=== PATIENT | female | born 1990 | race Caucasian/White ===

== ENCOUNTER 2022-06-22 18:45 | Emergency (ER) | payer MEDICAID ==
[2022-06-22 19:22] VITALS: O2SAT 98
[2022-06-22] MEDS ORDERED: TORAdol 30 mg Injection IM ONE (19:39)
[2022-06-22] MEDS ORDERED: Augmentin 875-125 Tablet PO ONE (19:39)
[2022-06-22] MEDS ORDERED: Augmentin 875-125 Tablet ONE (19:46)
[2022-06-22] MEDS ORDERED: TORAdol 30 mg Injection ONE (19:46)
--- NOTE | 2022-06-22 19:49 | ERPHSYRPT ---
- History of Present Illness Time Seen by Provider: 06/22/22 18:49 Source: patient Exam Limitations: no limitations Patient Subjective Stated Complaint: pt states "I began to have this swelling start in my mouth last night. I called the dentist and wasn't able to get in ti ll the ." Triage Nursing Assessment: pt ambulated into the er; pt is axo x4; c/o toothache; pt states 6/10 pain to left side face; pt has multipe broken and missing teeth; multiple caries present; swelling present to left upper gum; pt denies fever; vitals wnl; skin PDW Physician History: 31 years old female with multiple bad dentition, varied dental disease presented in the ER with chief complaint of left upper jaw pain and swelling gradually worsening since yesterday, moderate intensity sharp pain, more with palpation, movements of jaw and no significant relieving factors. No fever or chills reported. Timing/Duration: gradual onset, yesterday Severity: moderate ENT Location: facial, dental Prearrival Treatment: over the counter meds Associated Symptoms: jaw pain, No fever Allergies/Adverse Reactions: No Known Drug Allergies Allergy (Verified 06/22/22 19:09) Home Medications: Buprenorphine HCl/Naloxone HCl [Buprenorphine-Nalox 8-2 mg Tab] 1.75 tab SL DAILY 06/22/22 [History] Hx Tetanus, Diphtheria Vaccination/Date Given: Yes Hx Influenza Vaccination/Date Given: No Hx Pneumococcal Vaccination/Date Given: No Immunizations Up to Date: Yes Travel Risk - International Travel Have you traveled outside of the country in past 3 weeks: No - Coronavirus Screening Are you exhibiting any of the following symptoms?: No Close contact with a COVID-19 positive Pt in past 14-21 Days: No - Vaccine Status Have you recieved a Covid-19 vaccination: No - Review of Systems Constitutional: No Symptoms Eyes: No Symptoms Ears, Nose, & Throat: Mouth Pain, Mouth Swelling Respiratory: No Symptoms Cardiac: No Symptoms Abdominal/Gastrointestinal: No Symptoms Musculoskeletal: No Symptoms Skin: No Symptoms Neurological: No Symptoms Endocrine: No Symptoms Hematologic/Lymphatic: No Symptoms Immunological/Allergic: No Symptoms - Past Medical History Pertinent Past Medical History: Yes Neurological History: No Pertinent History ENT History: No Pertinent History Cardiac History: No Pertinent History Respiratory History: No Pertinent History Endocrine Medical History: No Pertinent History Musculoskeletal History: No Pertinent History GI Medical History: No Pertinent History History: No Pertinent History Psycho-Social History: Depression Female Reproductive Disorders: No Pertinent History - Past Surgical History Past Surgical History: Yes Neuro Surgical History: No Pertinent History Cardiac: No Pertinent History Respiratory: No Pertinent History Gastrointestinal: No Pertinent History Genitourinary: No Pertinent History Musculoskeletal: No Pertinent History Female Surgical History: Section, Tubal Ligation Other Surgical History: c-sections x4 - Social History Smoking Status: Current every day smoker How long have you smoked: 1 Exposure to second hand smoke: Yes Drug Use: none Patient Lives Alone: No - Female History Hx Now: No - Nursing Vital Signs Nursing Vital Signs: Initial Vital Signs Temperature 99 F 06/22/22 19:11 Pulse Rate 89 06/22/22 19:11 Respiratory Rate 14 06/22/22 19:11 Blood Pressure 129/64 06/22/22 19:11 O2 Sat by Pulse Oximetry 98 06/22/22 19:11 Pain Scale Pain Intensity 3 - Physical Exam General Appearance: no apparent distress Eye Exam: bilateral eye: normal inspection, PERRL, EOMI Ear Exam: bilateral ear: auricle normal, canal normal, TM normal Nasal Exam: normal inspection Throat Exam: normal, pharynx normal, dental tenderness (Periodontitis, multiple broken teeth with left upper swelling of gingiva, tenderness to palpation. No fluctuation.) Neck Exam: normal inspection, non-tender, supple, full range of motion Cardiovascular/Respiratory Exam: normal breath sounds, regular rate/rhythm Neurologic Exam: alert, oriented x 3, cooperative, supply chain vice president II-XII nml as tested Skin Exam: normal color SpO2 Interpretation: normal SpO2: 98 O2 Delivery: Room Air Ordered Tests: Medication Summary Discontinued Medications Generic Name Dose Route Start Last Admin Trade Name Freq PRN Reason Stop Dose Admin Amoxicillin/Clavulanate Potassium 875 mg 06/22/22 19:39 06/22/22 19:48 Amox Tr/Potassium Clavulanate 875 Mg Tablet PO 06/22/22 19:40 875 mg STAT ONE Administration Amoxicillin/Clavulanate Potassium Confirm 06/22/22 19:46 Amox Tr/Potassium Clavulanate 875 Mg Tablet Administered 06/22/22 19:47 Dose 875 mg .ROUTE .STK-MED ONE Ketorolac Tromethamine 30 mg 06/22/22 19:39 06/22/22 19:48 Ketorolac Tromethamine 30 Mg/Ml Inj IM 06/22/22 19:40 30 mg STAT ONE Administration Ketorolac Tromethamine Confirm 06/22/22 19:46 Ketorolac Tromethamine 30 Mg/Ml Inj Administered 06/22/22 19:47 Dose 30 mg .ROUTE .STK-MED ONE - Progress Progress: pain not gone completely Progress Note: 06/22/22 19:55 No obvious abscess at present. Given symptomatic treatment for pain and here. Recommended antibiotics along with NSAID and outpatient dental follow-up. Discussed signs symptoms of worsening needing return to ER which she seems understanding. Counseled pt/family regarding: diagnosis, need for follow-up - Departure Departure Disposition: Home Clinical Impression: Dental infection Condition: Stable Critical Care Time: No Referrals: JUDD ALMAZAN MD [NON-STAFF PHY W/O PRIVILEGES] - Follow Up with PCP/3 days PATRICA LOGAN DDS [NON-STAFF PHY W/O PRIVILEGES] - Follow up/PCP as directed (Call tomorrow for appointment for reevaluation) Instructions: Tooth Abscess (DC) Prescriptions: Ibuprofen 600 mg PO Q6HPRN PRN 10 Days #20 tablet PRN Reason: Pain Amox Tr/Potass Clav. 875 mg [Augmentin 875-125 Tablet] 875 mg PO BID #14 tablet
[2022-06-22 20:02] VITALS: BP 130/69; PULSE 73
== END 2022-06-22 20:08 | disposition home or self-care (01) ==
LOC: ED 18:45
DX: K04.7 Periapical abscess without sinus (principal); R68.84 Jaw pain
CPT/HCPCS: 96372; 99283; J1885; A9270-GY

== ENCOUNTER 2023-11-12 18:19 | Emergency (ER) | payer MEDICAID ==
--- NOTE | 2023-11-12 19:23 | ERPHSYRPT ---
- History of Present Illness Time Seen by Provider: 11/12/23 19:22 Source: patient Exam Limitations: no limitations Physician History: This is a 33-year-old white female patient who presents to the emergency department with 4-day history of right side roof of the mouth abscess. Patient has generalized dental caries and poor dentition. She took a gram of Tylenol at 1700. The pain is radiating into the right cheek and is giving her right side headache. She has not had change in her vision. Patient smokes cigarettes daily. Patient has not seen a dentist. Patient has no known drug allergies. Patient is on Suboxone Timing/Duration: gradual onset, days (4) Severity: moderate Prearrival Treatment: no prearrival treatment Associated Symptoms: facial pain/swelling (Right cheek pain without swelling), tooth pain (Right side incisors) Allergies/Adverse Reactions: No Known Drug Allergies Allergy (Verified 11/12/23 19:28) Home Medications: Buprenorphine HCl/Naloxone HCl [Buprenorphine-Nalox 8-2 mg Tab] 1.75 tab SL DAILY 06/22/22 [History] Hx Tetanus, Diphtheria Vaccination/Date Given: Yes Hx Influenza Vaccination/Date Given: No Hx Pneumococcal Vaccination/Date Given: No Travel Risk - International Travel Have you traveled outside of the country in past 3 weeks: No - Coronavirus Screening Are you exhibiting any of the following symptoms?: No Close contact with a COVID-19 positive Pt in past 14-21 Days: No - Vaccine Status Have you recieved a Covid-19 vaccination: No - Review of Systems Constitutional: No Symptoms, No Fever Eyes: No Symptoms Ears, Nose, & Throat: Other (Abscess hard palate base of right incisors) Respiratory: No Symptoms Cardiac: No Symptoms Abdominal/Gastrointestinal: No Symptoms Genitourinary Symptoms: No Symptoms Musculoskeletal: No Symptoms Skin: Skin Lesions Neurological: No Symptoms Psychological: No Symptoms Endocrine: No Symptoms Hematologic/Lymphatic: No Symptoms Immunological/Allergic: No Symptoms All Other Systems: Reviewed and Negative - Past Medical History Pertinent Past Medical History: Yes Neurological History: No Pertinent History ENT History: No Pertinent History Cardiac History: No Pertinent History Respiratory History: No Pertinent History Endocrine Medical History: No Pertinent History Musculoskeletal History: No Pertinent History GI Medical History: No Pertinent History History: No Pertinent History Psycho-Social History: Depression Female Reproductive Disorders: No Pertinent History - Past Surgical History Past Surgical History: Yes Neuro Surgical History: No Pertinent History Cardiac: No Pertinent History Respiratory: No Pertinent History Gastrointestinal: No Pertinent History Genitourinary: No Pertinent History Musculoskeletal: No Pertinent History Female Surgical History: Section, Tubal Ligation Other Surgical History: c-sections x4 - Social History Smoking Status: Current every day smoker How long have you smoked: 1 Exposure to second hand smoke: Yes Drug Use: none Patient Lives Alone: No - Nursing Vital Signs Nursing Vital Signs: Initial Vital Signs Temperature 99.4 F 11/12/23 19:21 Pulse Rate 73 11/12/23 19:21 Blood Pressure 124/63 11/12/23 19:21 O2 Sat by Pulse Oximetry 98 11/12/23 19:21 Pain Scale Pain Intensity 10 - Physical Exam General Appearance: no apparent distress, alert, anxiety, thin Eye Exam: bilateral eye: normal inspection, PERRL, EOMI Ear Exam: bilateral ear: auricle normal Nasal Exam: normal inspection Throat Exam: dental tenderness (With hard palate right side abscess near the base of the right upper incisor. Generalized poor dentition.), moist mucus membranes Neck Exam: normal inspection, non-tender, supple, full range of motion, trachea midline Cardiovascular/Respiratory Exam: chest non-tender, no respiratory distress Abdominal Exam: non-tender Neurologic Exam: alert, oriented x 3, cooperative, serger II-XII nml as tested, normal mood/affect, nml cerebellar function, nml station & gait, sensation nml Skin Exam: normal color, warm, dry SpO2 Interpretation: normal O2 Delivery: Room Air Procedures - Incision and Drainage Time of Procedure: 20:10 Site: Right side upper hard palate base of right side incisor Anesthesia: 1% Lidocaine cc's of anesthesia: 2 Blade Size: 11 I & D Procedure: culture obtained Results: small amount pus Progress: Initially, we placed an 18-gauge into the ballotable abscess that was present and we were able to retrieve a small amount of pus which was cultured and sent to microbiology. Next, we infiltrated the area with 1 cc of 1% lidocaine plain followed by a cruciate incision in the mucosal lining. We were able to express a small amount more of the pus. The abscess pocket had collapsed. Patient tolerated the procedure well. - Course Nursing assessment & vital signs reviewed: Yes Ordered Tests: Active Orders 24 hr Category Date Time Status CULTURE,WOUND Stat Lab 11/12/23 20:22 Ordered Medication Summary Discontinued Medications Generic Name Dose Route Start Last Admin Trade Name Katie PRN Reason Stop Dose Admin Ceftriaxone Sodium 1,000 mg 11/12/23 20:13 11/12/23 20:16 Ceftriaxone Sodium 1000 Mg Inj Vial IM 11/12/23 20:14 1,000 mg STAT ONE Administration Ceftriaxone Sodium Confirm 11/12/23 20:12 Ceftriaxone Sodium 1000 Mg Inj Vial Administered 11/12/23 20:13 Dose 1,000 mg .ROUTE .STK-MED ONE Ibuprofen 600 mg 11/12/23 20:22 11/12/23 20:27 Ibuprofen 600 Mg Tablet PO 11/12/23 20:23 600 mg STAT ONE Administration Lidocaine HCl 2 ml 11/12/23 20:13 11/12/23 20:16 Lidocaine Hcl 1% 20 Ml Mdv 20 Ml Ml IJ 11/12/23 20:14 2 ml STAT ONE Administration Lidocaine HCl Confirm 11/12/23 20:12 Lidocaine Hcl 1% 20 Ml Mdv 20 Ml Ml Administered 11/12/23 20:13 Dose 2 ml .ROUTE .STK-MED ONE - Progress Progress: improved, pain not gone completely, re-examined Progress Note: 11/12/23 20:32 This patient's medical issue is 1 of low to moderate complexity. Level complexity in the workup performed is based on review of the patient's past medical history, review of the patient's medication list, review of the patient's drug allergy list, history of present illness and physical findings on examination. The patient workup includes incision and drainage of the roof of mouth abscess, culture of the abscess fluid, provide the patient with injection of Rocephin 1 g intramuscularly, provide the patient with 600 mg only. Will also make a one-to-one mixture of viscous lidocaine 2% and Benadryl elixir 12.5 mg per 5 mL for cotton swabs. Counseled pt/family regarding: diagnosis, need for follow-up Medical Desision Making - Independent Historian Additional History obtained from: Family - Diagnostic Testing Diagnostic test were ordered, analyzed, and reviewed by me: No - Risk of complications The pt has a mod risk of morbidity or mortality based on: Need for prescription drug management - Departure Departure Disposition: Home Clinical Impression: Dental caries, Hard palate abscess Condition: Stable Critical Care Time: No Referrals: CELIO MCCANN I [Primary Care Provider] - Follow up/PCP as directed Additional Instructions: Rinse your mouth out 3-4 times a day with Listerine medicated mouthwash. Take y our antibiotics as prescribed. Only take a maximum of Tylenol 4 g per 24-hour period. Take ibuprofen 600 mg orally every 6-8 hours with food. Call your dentist/oral surgeon tomorrow, 11/13/2023, to make a follow-up appointment for further evaluation and management. Use the Benadryl elixir and lidocaine mixture every 8 hours by soaking a single cotton ball then compress to the area of tenderness. Prescriptions: Amoxicillin 500 mg Cap [Amoxil 500 mg] 500 mg PO TID #30 cap
[2023-11-12 19:28] VITALS: TEMP 99.4
[2023-11-12] MEDS ORDERED: Rocephin 1000 MG INJ ONE (20:12)
[2023-11-12] MEDS ORDERED: XYLOCAINE 1% HCL 20 ML MDV ONE (20:12)
[2023-11-12] MEDS: XYLOCAINE 1% HCL 20 ML MDV IJ ONE (20:16)
[2023-11-12] MEDS: Rocephin 1000 MG INJ IM ONE (20:16)
[2023-11-12] MEDS ORDERED: MOTRIN 600 MG ONE (20:25)
[2023-11-12] MEDS ORDERED: MAALOX ES 30 ML UNIT DOSE ONE (20:26)
[2023-11-12] MEDS ORDERED: XYLOCAINE VISCOUS 2% 15 ML CUP ONE (20:26)
[2023-11-12] MEDS: MOTRIN 600 MG PO ONE (20:27)
[2023-11-12] MEDS: MAALOX ES 30 ML UNIT DOSE PO ONE (21:03)
[2023-11-12] MEDS: XYLOCAINE VISCOUS 2% 15 ML CUP PO ONE (21:04)
[2023-11-12] MEDS: BENADRYL 12.5 MG/5 ML PO ONE (21:04)
[2023-11-12 21:12] VITALS: BP 116/61; PULSE 72; RESP 16; O2SAT 99
== END 2023-11-12 21:12 | disposition home or self-care (01) ==
LOC: ED 18:19
DX: M27.2 Inflammatory conditions of jaws (principal); K02.9 Dental caries, unspecified; R51.9 Headache, unspecified; Z79.891 Long term (current) use of opiate analgesic; Z28.310 Unvaccinated for COVID-19; Z72.0 Tobacco use
CPT/HCPCS: 42000; 87070; 87077; 96372; 99284; J0696; A9270-GY